=== PATIENT | female | born 1945 | race Caucasian/White ===

== ENCOUNTER → 2016-05-18 | Day surgery (SDC) | payer OTHER, BC ==
[~2016-05-18] MED LIST: ACIDOPHILUS1 EAC5 PO; ADVAIR 500/501 DISK; ADVAIR 500/501 DISK IH; AMIODARONE HCL100 MG PO; AMOXICILLIN500 MG; Advair 500/50 Diskus; CALTRATE 600 +1 EAC2 PO; CHILD ASPIRIN81 M1 PO; CLARITIN,ALAVAR10 MG PO; COLACE100 MG PO; CORDARONE200 MG PO; FEMARA2.5 MG PO; FISH OIL 1,0001 EAC7 PO; FLUTICASONE PRO16 GM; GABAPENTIN300 MG; GABAPENTIN300 MG PO; HYDROCHLOROTHIAZIDE; IMODIUM MS REL1 EACH PO; JANUMET 50/11 TABLET PO; LANTUS 3 M100 UNITS1; LANTUS 3 M100 UNITS1 SC; LANTUS 3 M100 UNITS1 SQ; LASIX20 MG PO; LIDOCAINE 2.5% TP; LIPITOR40 MG PO; LISINOPRIL; LISINOPRIL10 MG PO; LISINOPRIL5 MG PO; LOMOTIL TABLET1 EACH PO; LYRICA100 MG PO; LYRICA75 MG PO; METFORMIN HCL500 MG PO; NEURONTIN300 MG PO; NOVOLOG PE100 UNITS/; NOVOLOG PE100 UNITS/ SC; OXYCODONE HCL15 MG PO; OXYCONTIN30 MG PO; PERCOCET 5/31 TABLET PO; PREDNISONE10 MG; PREMARIN0.625 MG; PROAIR HFA8.5 GM; PROAIR HFA8.5 GM IH; SILVADENE20 GM TP; SINGULAIR10 MG PO; TRAMADOL HCL E200 M1 PO; VITAMIN B-122000 MC1 PO; VITAMIN B-6250 MG PO; VITAMIN D32000 UNI1 PO; VITAMIN E400 UNIT PO; XANAX0.5 MG PO; XANAX1 MG PO; ZESTRIL2.5 MG PO; ZOFRAN8 MG PO
== END | disposition home or self-care (01) ==
LOC: OPR 05-05 09:00 → EDSTATUS 05-06 10:00 → OPR 05-06 10:00 → SDC 09:12
PROC: 0FB03ZX Excision of Liver, Percutaneous Approach, Diagnostic (ICD-10-PCS; principal; 2016-05-18)
DX: C78.7 Secondary malignant neoplasm of liver and intrahepatic bile duct (principal); C50.919 Malignant neoplasm of unspecified site of unspecified female breast
CPT/HCPCS: 77012; 88307; 88341 TC; 88342 TC; J3010

== ENCOUNTER 2016-06-09 11:52 | Observation (INO) | payer OTHER, BC ==
[~2016-06-09] VITALS: Ht 154.9 cm; Wt 76.1 kg
[2016-06-09 13:11] LABS: HEMATOCRIT 39.8 % (36.0-46.0); MCH 31.1 PG (29.0-34.0); MCHC 34.9 G/DL (30.0-36.0); MEAN PLAT.VOLUME 9.2 uM^3 (9.5-12.4); PLATELET COUNT 366 K/uL (156-360); RBC DIS.WIDTH-CV 12.5 % (11.8-14.6); RBC DIS.WIDTH-SD 40.7 % (39-53); RED BLOOD COUNT 4.47 M/uL (3.80-5.20); WHITE BLOOD COUNT 8.9 K/uL (4.1-10.2)
[2016-06-09 13:26] LABS: CHLORIDE 105 mEq/L (99-109); POTASSIUM 3.8 mEq/L (3.7-5.4); SODIUM 135 mEq/L (136-147)
[2016-06-09 13:28] LABS: GLUCOSE 181 mg/dL (70-99)
[2016-06-09 13:29] LABS: ANION GAP 12 MEQ/L (2-14)
[2016-06-09 13:30] LABS: TOTAL BILIRUBIN 0.8 mg/dL (0.0-1.0)
[2016-06-09 13:31] LABS: ALKALINE PHOSPHATASE 77 IU/L (3-129)
[2016-06-09 13:32] LABS: GFR ESTIMATE (CALCULATED) > 59 mL/min/
[2016-06-09 13:33] LABS: UREA NITROGEN (BUN) 13 mg/dL (9-23)
[2016-06-09 13:35] LABS: LIPASE 12 U/L (1.0-51.0)
[2016-06-09 14:46] LABS: ANISOCYTOSIS 1+; ATYPICAL LYMPHOCYTE 3.5 %; METAMYELOCYTES 0.9 %; MICROCYTOSIS 1+; PLAT.SUFFICIENCY ADEQUATE; SEG.NEUTROPHILS 85.1 % (46.0-76.0)
[2016-06-09] MEDS ORDERED: ZOFRAN4 MG PO (15:15)
[2016-06-09] MEDS ORDERED: LO-DOSE ASPIRIN81 M2 PO (16:21)
[2016-06-09] MEDS ORDERED: DURAGESIC100 MCG TD (16:22)
[2016-06-09] MEDS ORDERED: LOMOTIL TABLET1 EACH PO (16:22)
[2016-06-09] MEDS ORDERED: VITAMIN B-122000 MC1 PO (16:22)
[2016-06-09] MEDS ORDERED: OXYCODONE HCL15 MG PO (16:23)
[2016-06-09] MEDS ORDERED: VENTOLIN HFA18 GM IH (16:23)
[2016-06-09 17:30] VITALS: BP 136/60
[2016-06-09 21:00] VITALS: BP 147/70
[2016-06-10 00:34] VITALS: BP 138/64
[2016-06-10 04:40] VITALS: BP 146/69
[2016-06-10 07:22] VITALS: BP 119/69
[2016-06-10 07:43] LABS: ANION GAP 11 MEQ/L (2-14); CHLORIDE 110 MEQ/L (99-109); GFR ESTIMATE (CALCULATED) > 59 mL/min/; GLUCOSE 135 mg/dL (70-99); POTASSIUM 3.6 MEQ/L (3.7-5.4); SAMPLE HEMOLYSIS CHECK 0; SAMPLE ICTERIC CHECK 0; SAMPLE LIPEMIA CHECK 0; SODIUM 140 MEQ/L (136-147); UREA NITROGEN (BUN) 12 mg/dL (9-23)
[2016-06-10 08:07] LABS: INTERNAL CONTROL VALID? YES
[2016-06-10 08:11] LABS: ADD MIUA? YES; BILIRUBIN NEGATIVE; BLOOD NEGATIVE; COLOR YELLOW ((YELLOW)); GLUCOSE (STRIP) 50; KETONES 5; LEUKOCYTES MODERATE; NITRITE NEGATIVE; PROTEIN (STRIP) NEGATIVE; SPECIFIC GRAVITY 1.015 (1.000-1.030); UROBILINOGEN 0.2 MG/DL (0.2-1.0)
[2016-06-10 08:44] LABS: C DIFF TOXIN NEGATIVE (NEGATIVE); PROBE CHECK PASS; SPECIMEN PROCESSING CONTROL PASS
[2016-06-10 08:58] LABS: RED BLOOD CELLS 0-5 /HPF (0-5)
[2016-06-10 08:59] LABS: BACTERIA NONE SEEN /HPF; CASTS NONE SEEN /LPF; CRYSTALS NONE SEEN; EPITHELIAL CELLS RARE /HPF; MUCUS TRACE /LPF; UCUL ADDED? NO
[2016-06-10 11:34] VITALS: BP 135/68
[2016-06-10 11:35] VITALS: BP 129/77; BP 138/80
[2016-06-10] MEDS ORDERED: ZOFRAN4 MG PO (12:12)
[2016-06-10 12:30] LABS: POINT-OF-CARE METER ID UU14162513
== END 2016-06-10 13:53 | disposition home or self-care (01) ==
LOC: EME 11:52 → 5WEST 16:40 → EDOF 16:40 → 5WEST 17:27
PROVIDERS: Hospitalist; Internal Medicine; Internal Medicine Hematology & Oncology; Physician Assistant
DX: R11.2 Nausea with vomiting, unspecified (principal); T45.1X5A Adverse effect of antineoplastic and immunosuppressive drugs, initial encounter; E86.0 Dehydration; C50.919 Malignant neoplasm of unspecified site of unspecified female breast; C79.51 Secondary malignant neoplasm of bone; C77.3 Secondary and unspecified malignant neoplasm of axilla and upper limb lymph nodes; E78.5 Hyperlipidemia, unspecified; M19.90 Unspecified osteoarthritis, unspecified site; G89.29 Other chronic pain; G25.81 Restless legs syndrome; J45.909 Unspecified asthma, uncomplicated; E11.9 Type 2 diabetes mellitus without complications
CPT/HCPCS: 71020; 80048; 80053; 81003; 82948; 83605; 83630; 83690; 85007; 85027; 87040; 87493; 87506; 99281; 99285; G0378; J1815; J1885; J2270; J2765; J7030; S0028

== ENCOUNTER 2016-08-02 12:17 | Inpatient (IN) | payer OTHER, BC ==
[~2016-08-02] VITALS: Ht 154.9 cm; Wt 65.0 kg
[~2016-08-02 12:17] MED LIST changes: +COMPAZINE10 MG PO; +DURAGESIC100 MCG TD; +LO-DOSE ASPIRIN81 M2 PO; +VENTOLIN HFA18 GM IH; +ZOFRAN4 MG PO
[2016-08-02 13:15] LABS: HEMATOCRIT 37.1 % (36.0-46.0); MCH 30.3 PG (29.0-34.0); MCHC 32.9 G/DL (30.0-36.0); MCV 92.3 FL (83-99); MEAN PLAT.VOLUME 9.1 uM^3 (9.5-12.4); PLATELET COUNT 414 K/uL (156-360); RBC DIS.WIDTH-SD 49.3 % (39-53); RED BLOOD COUNT 4.02 M/uL (3.80-5.20)
[2016-08-02 13:25] LABS: WHITE BLOOD COUNT 10.5 K/uL (4.1-10.2)
[2016-08-02 13:48] LABS: ANION GAP 8 MEQ/L (2-14); CHLORIDE 106 MEQ/L (99-109); POTASSIUM 4.1 MEQ/L (3.7-5.4); SAMPLE HEMOLYSIS CHECK 0; SAMPLE ICTERIC CHECK 0; SAMPLE LIPEMIA CHECK 0; SODIUM 139 MEQ/L (136-147)
[2016-08-02 13:53] LABS: GFR ESTIMATE (CALCULATED) > 59 mL/min/; GLUCOSE 172 mg/dL (70-99); UREA NITROGEN (BUN) 15 mg/dL (9-23)
[2016-08-02 14:06] LABS: TROP-I INTERPRETATION NEGATIVE; TROPONIN-I < 0.01 ng/mL (0.0-0.30)
[2016-08-02] MEDS ORDERED: OXYCODONE HCL10 MG PO (16:44)
[2016-08-02] MEDS ORDERED: VENTOLIN HFA18 GM IH (16:46)
[2016-08-02] MEDS ORDERED: CIPRO500 MG PO (16:46)
[2016-08-02] MEDS ORDERED: ZOFRAN8 MG PO (16:46)
[2016-08-02 17:16] LABS: ALKALINE PHOSPHATASE 75 IU/L (3-129)
[2016-08-02 17:25] LABS: TOTAL BILIRUBIN 0.5 MG/DL (0.0-1.0)
[2016-08-02 19:39] VITALS: BP 127/60
[2016-08-02 23:16] VITALS: BP 117/61
[2016-08-03 03:57] VITALS: BP 135/60
[2016-08-03 06:18] LABS: POINT-OF-CARE METER ID UU13113725
[2016-08-03 07:54] VITALS: BP 122/57
== END 2016-08-03 10:45 | disposition home or self-care (01) | DRG 841 ==
LOC: EME → EDBD 12:17 → EDOF 16:34 → 5EAST 18:42
PROVIDERS: Emergency Medicine; Internal Medicine
DX: C77.3 Secondary and unspecified malignant neoplasm of axilla and upper limb lymph nodes (principal); C78.7 Secondary malignant neoplasm of liver and intrahepatic bile duct; C50.919 Malignant neoplasm of unspecified site of unspecified female breast; R53.1 Weakness; E11.9 Type 2 diabetes mellitus without complications; J42 Unspecified chronic bronchitis; G43.909 Migraine, unspecified, not intractable, without status migrainosus; E86.0 Dehydration; E78.5 Hyperlipidemia, unspecified; I70.90 Unspecified atherosclerosis; M85.80 Other specified disorders of bone density and structure, unspecified site; M19.90 Unspecified osteoarthritis, unspecified site; G89.29 Other chronic pain; G25.81 Restless legs syndrome; F17.210 Nicotine dependence, cigarettes, uncomplicated
CPT/HCPCS: 71020; 74177; 80048; 80053; 81003; 82948; 83880; 84484; 85027; 85610; 85730; 87493; 93005; 93970; 99281; 99285; J1650; J1815; J2270

== ENCOUNTER 2017-06-06 16:55 | Emergency (ER) | payer OTHER, BC ==
[~2017-06-06] VITALS: Ht 152.4 cm; Wt 75.5 kg
[~2017-06-06 16:55] MED LIST changes: +AMBIEN5 MG PO; +CIPRO500 MG PO; +DURAGESIC25 MCG TD; +DURAGESIC50 MCG TD; +OXYCODONE HCL10 MG PO; +XELODA500 MG PO
[2017-06-06 21:01] VITALS: BP 120/88
== END 2017-06-06 21:05 | disposition home or self-care (01) ==
LOC: EME 16:55
PROC: 0H96XZZ Drainage of Back Skin, External Approach (ICD-10-PCS; principal; 2017-06-06)
DX: L02.212 Cutaneous abscess of back [any part, except buttock and flank] (principal); Z85.3 Personal history of malignant neoplasm of breast; Z85.830 Personal history of malignant neoplasm of bone; Z85.05 Personal history of malignant neoplasm of liver; Z92.21 Personal history of antineoplastic chemotherapy; Z90.10 Acquired absence of unspecified breast and nipple; E11.9 Type 2 diabetes mellitus without complications; J45.909 Unspecified asthma, uncomplicated; Z79.84 Long term (current) use of oral hypoglycemic drugs; Z79.82 Long term (current) use of aspirin; Z88.2 Allergy status to sulfonamides; F17.200 Nicotine dependence, unspecified, uncomplicated
CPT/HCPCS: 99281; 99284

== ENCOUNTER 2017-08-31 17:05 | Inpatient (IN) | payer OTHER, BC ==
[~2017-08-31] VITALS: Ht 154.9 cm; Wt 75.6 kg
[~2017-08-31 17:05] MED LIST changes: +LIPITOR20 MG PO
[2017-08-31 17:59] LABS: BASOPHIL (%) 0.3 % (0-1); EOSINOPHIL (%) 2.1 % (0-5); EOSINOPHIL COUNT 0.2 K/uL (0-0.3); HEMATOCRIT 36.7 % (36.0-46.0); HEMOGLOBIN 12.8 G/DL (11.9-15.5); IMMATURE GRANULOCYTE (%) 0.6 % (0.0-0.7); LYMPHOCYTE (%) 13.8 % (15-42); LYMPHOCYTE COUNT 1.5 K/uL (1.0-2.8); MCH 36.9 PG (29.0-34.0); MCHC 34.9 G/DL (30.0-36.0); MCV 105.8 FL (83-99); MONOCYTE (%) 8.1 % (3-12); MONOCYTE COUNT 0.9 K/uL (0-0.8); NEUTROPHIL (%) 75.1 % (45-76); NEUTROPHIL COUNT 8.1 K/uL (1.8-6.4); PLATELET COUNT 211 K/uL (156-360); RBC DIS.WIDTH-CV 16.2 % (11.8-14.6); RBC DIS.WIDTH-SD 63.1 % (39-53); RED BLOOD COUNT 3.47 M/uL (3.80-5.20); WHITE BLOOD COUNT 10.8 K/uL (4.1-10.2)
[2017-08-31 18:10] LABS: ALBUMIN 3.5 g/dL (3.2-4.8); CHLORIDE 105 mEq/L (99-109); POTASSIUM 4.2 mEq/L (3.7-5.4); SODIUM 140 mEq/L (136-147)
[2017-08-31 18:12] LABS: GLUCOSE 147 mg/dL (70-99)
[2017-08-31 18:14] LABS: TOTAL BILIRUBIN 0.3 mg/dL (0.0-1.0)
[2017-08-31 18:16] LABS: ALKALINE PHOSPHATASE 65 IU/L (3-129); CREATININE 0.8 mg/dL (0.6-1.3); GFR ESTIMATE (CALCULATED) > 59 mL/min/
[2017-08-31 18:17] LABS: UREA NITROGEN (BUN) 12 mg/dL (9-23)
[2017-08-31 18:18] LABS: AST (GOT) 10 IU/L (2-34)
[2017-08-31 18:19] LABS: ALT (GPT) 13 IU/L (3-49)
[2017-08-31 18:20] LABS: APPEARANCE CLEAR ((CLEAR)); BILIRUBIN NEGATIVE; BLOOD NEGATIVE; COLOR STRAW ((YELLOW)); GLUCOSE (STRIP) 150; KETONES NEGATIVE; LEUKOCYTES LARGE; NITRITE NEGATIVE; PROTEIN (STRIP) NEGATIVE; SPECIFIC GRAVITY 1.004 (1.000-1.030); UROBILINOGEN 0.2 MG/DL (0.2-1.0)
[2017-08-31 18:28] LABS: BACTERIA RARE /HPF; EPITHELIAL CELLS RARE /HPF; MUCUS TRACE /LPF; RED BLOOD CELLS 0-5 /HPF (0-5); UCUL ADDED? YES; WHITE BLOOD CELLS 15-20 /HPF (0-5)
[2017-08-31] MEDS ORDERED: TRAMADOL HCL50 MG PO (20:33)
[2017-08-31] MEDS ORDERED: GABAPENTIN300 MG PO (20:33)
[2017-08-31 22:17] VITALS: BP 127/72
[2017-08-31 22:19] VITALS: BP 173/65
[2017-08-31 22:36] VITALS: BP 127/72
[2017-08-31 23:00] VITALS: BP 82/56
[2017-09-01] VITALS (16 sets, daily range): BP systolic 88–160; BP diastolic 54–103
[2017-09-01 05:06] LABS: HEMATOCRIT 35.4 % (36.0-46.0); HEMOGLOBIN 11.7 G/DL (11.9-15.5); MCH 34.7 PG (29.0-34.0); MCHC 33.1 G/DL (30.0-36.0); PLATELET COUNT 210 K/uL (156-360); RBC DIS.WIDTH-CV 16.2 % (11.8-14.6); RBC DIS.WIDTH-SD 62.9 % (39-53); RED BLOOD COUNT 3.37 M/uL (3.80-5.20); WHITE BLOOD COUNT 9.6 K/uL (4.1-10.2)
[2017-09-01 06:00] LABS: CHLORIDE 110 MEQ/L (99-109); CREATININE 0.8 MG/DL (0.6-1.3); GFR ESTIMATE (CALCULATED) > 59 mL/min/; GLUCOSE 135 mg/dL (70-99); POTASSIUM 4.2 MEQ/L (3.7-5.4); SODIUM 141 MEQ/L (136-147); UREA NITROGEN (BUN) 11 mg/dL (9-23)
[2017-09-01 09:16] LABS: C DIFF TOXIN ND (NEGATIVE)
[2017-09-01 12:57] LABS: HEMOGLOBIN A1c (GLYCOHEMOGLOB) 7.2 % (Below 5.7)
[2017-09-02 03:03] VITALS: BP 123/58
[2017-09-02 06:59] LABS: HEMATOCRIT 34.9 % (36.0-46.0); HEMOGLOBIN 11.6 G/DL (11.9-15.5); MCH 34.9 PG (29.0-34.0); MCHC 33.2 G/DL (30.0-36.0); MCV 105.1 FL (83-99); PLATELET COUNT 209 K/uL (156-360); RBC DIS.WIDTH-CV 16.1 % (11.8-14.6); RBC DIS.WIDTH-SD 62.7 % (39-53); RED BLOOD COUNT 3.32 M/uL (3.80-5.20); WHITE BLOOD COUNT 9.2 K/uL (4.1-10.2)
[2017-09-02 07:23] LABS: CHLORIDE 108 MEQ/L (99-109); CREATININE 0.7 MG/DL (0.6-1.3); GFR ESTIMATE (CALCULATED) > 59 mL/min/; GLUCOSE 128 mg/dL (70-99); POTASSIUM 3.7 MEQ/L (3.7-5.4); SODIUM 139 MEQ/L (136-147); UREA NITROGEN (BUN) 8 mg/dL (9-23); VANCOMYCIN, TROUGH 11.4 MCG/ML (10-20)
[2017-09-02 09:17] VITALS: BP 136/59
[2017-09-02 12:13] VITALS: BP 122/85
== END 2017-09-02 13:10 | disposition home or self-care (01) | DRG 871 ==
LOC: EME 17:05 → EDOF 20:27 → 4WEST 20:27 → ENRESERV 20:27 → EDOF 21:18 → ENRESERV 21:19 → ENRESERVTM 21:25 → ENRESERVDT 21:25 → 4WEST 22:11 → ENRESERV 09-01 09:43 → CANRESERV 09-01 09:43 → ENRESERV 09-01 12:54 → 5EAST 09-01 14:53 → ENPENDDIS 09-02 → 5EAST 09-02 13:10
PROVIDERS: Emergency Medicine; Family Medicine; Surgery
DX: A41.9 Sepsis, unspecified organism (principal); C79.51 Secondary malignant neoplasm of bone; C50.911 Malignant neoplasm of unspecified site of right female breast; Z90.11 Acquired absence of right breast and nipple; I77.1 Stricture of artery; G25.81 Restless legs syndrome; E78.5 Hyperlipidemia, unspecified; R65.21 Severe sepsis with septic shock; E11.51 Type 2 diabetes mellitus with diabetic peripheral angiopathy without gangrene; M19.90 Unspecified osteoarthritis, unspecified site; Z90.49 Acquired absence of other specified parts of digestive tract; G89.4 Chronic pain syndrome; F17.200 Nicotine dependence, unspecified, uncomplicated; J42 Unspecified chronic bronchitis; J45.909 Unspecified asthma, uncomplicated; M85.80 Other specified disorders of bone density and structure, unspecified site; E11.40 Type 2 diabetes mellitus with diabetic neuropathy, unspecified
CPT/HCPCS: 71045; 71046; 80048; 80053; 80202; 81003; 82948; 83036; 83605; 83880; 85025; 85025 91; 85027; 87040; 87086; 87493; 87641; 93930; 99202; 99281; 99285; J0692; J1644; J1815; J3370; J7030; S0028